=== PATIENT | male | born 1960 | race Caucasian/White ===

== ENCOUNTER 2016-10-26 15:05 | Emergency (ER) | payer BC, OTHER ==
[~2016-10-26] VITALS: Ht 182.9 cm; Wt 124.7 kg
[2016-10-26 17:45] LABS: BASO % 0.4 % (0.0-1.0); EOS # 0.1 K/mm3 (0.0-0.50); EOS % 0.7 % (0.0-3.0); LARGE UNSTAINED CELL # 0.1 K/mm3 (0.0-0.4); LARGE UNSTAINED CELL % 1.1 % (0.0-4.0); LYMPH # 1.4 K/mm3 (1.5-4.5); LYMPH % 13.2 % (24.0-44.0); MEAN CORPUSCULAR HEMOGLOBIN 29.4 pg (27.0-33.0); MEAN CORPUSCULAR HGB CONC 33.5 g/dl (32.0-36.5); MEAN CORPUSCULAR VOLUME 87.8 fl (80.0-96.0); MONO # 0.4 K/mm3 (0.0-0.8); MONO % 4.2 % (0.0-5.0); NEUTROPHILS # 7.7 K/mm3 (1.8-7.7); NEUTROPHILS % 80.4 % (36.0-66.0); PLATELET COUNT, AUTOMATED 308 k/mm3 (150-450); WHITE BLOOD COUNT 9.6 K/mm3 (4.0-10.0)
[2016-10-26 18:00] LABS: CALCIUM LEVEL 8.6 MG/DL (8.5-10.1); CREATININE FOR GFR 2.03 MG/DL (0.70-1.30); GLOMERULAR FILTRATION RATE 36.3 (>56); POTASSIUM SERUM 4.3 MEQ/L (3.5-5.1)
--- NOTE | 2016-10-26 18:05 | REP ---
Left knee series: Five views: History: Left knee pain. Findings: There is prepatellar soft-tissue swelling. Patellofemoral spur formation is noted consistent with osteoarthritis. There is also nonarticular spurring at the superior and inferior pole of the patella at the quadriceps tendon and patellar tendon insertion sites. Vascular calcification is noted behind the knee. No fracture is seen. Impression: No fracture noted. Patellofemoral spurring and tendon insertion site spurring on the patella. Prepatellar swelling. Signed by Dudley Rivera MD 10/26/2016 06:30 P
[2016-10-26 18:07] LABS: ERYTHROCYTE SEDIMENTATION RATE 64 mm/hr (0-20)
[2016-10-26] MEDS ORDERED: GLIM2TAB PO (18:30)
[2016-10-26] MEDS ORDERED: LEVO-91 PO (18:30)
[2016-10-26] MEDS ORDERED: edarbyclor PO (18:30)
[2016-10-26] MEDS ORDERED: [UNRECOGNIZED DRUG - CODE] PO (18:30)
[2016-10-26] MEDS ORDERED: BYST5TAB2 PO (18:30)
[2016-10-26] MEDS ORDERED: TORS20TA2 PO (18:30)
[2016-10-26 19:00] VITALS: BP 192/89
== END 2016-10-26 19:04 | disposition home or self-care (01) ==
LOC: M ED 16:55
DX: M70.42 Prepatellar bursitis, left knee (principal)

== ENCOUNTER → 2016-12-18 | Outpatient (CLI) | payer BC, OTHER ==
[~2016-12-18] MED LIST: BYST5TAB2 PO; GLIM2TAB PO; LEVO-91 PO; TORS20TA2 PO; [UNRECOGNIZED DRUG - CODE] PO; edarbyclor PO
--- NOTE | 2016-12-18 08:09 | REP ---
Clinical: Chronic stage III medical renal disease. Comparison: 11/14/2012. Technique: Real time escalona scale ultrasound examination using curved array transducer. Findings: The bilateral kidneys are normal in contour, size, echogenicity and reniform shape without hydronephrosis, nephrolithiasis or renal mass lesion. Right kidney measures 14.4 x 6.9 x 7.3 cm and includes 1.9 cm simple lower pole renal cyst. Left kidney measures 14.6 x 6.7 x 6.2 cm without cyst. The bladder is grossly unremarkable but incompletely distended. Impression: 1.9 cm right lower pole simple renal cysts. Otherwise relatively normal ultrasound evaluation of the kidneys. Signed by Jay Jay Maria MD 12/18/2016 08:00 A
== END ==
LOC: M RAD 06:44
PROVIDERS: ATTEND Internal Medicine Nephrology
DX: N18.3 Chronic kidney disease, stage 3 (moderate) (principal)

== ENCOUNTER → 2019-05-12 | Outpatient (REF) | payer OTHER ==
[~2019-05-12] MED LIST changes: -GLIM2TAB PO; +GLIM2TAB2 PO
[2019-05-12 17:36] LABS: FREE T4 0.92 NG/DL (0.76-1.46); THYROID STIMULATING HORMONE 7.38 uIU/ML (0.358-3.740)
== END ==
LOC: M LAB REF 16:57
PROVIDERS: ATTEND Internal Medicine Nephrology
DX: E03.9 Hypothyroidism, unspecified (principal)

== ENCOUNTER → 2019-10-09 | Outpatient (REF) | payer OTHER ==
[~2019-10-09] MED LIST changes: -GLIM2TAB2 PO; +GLIM2TAB4 PO
[2019-10-09 18:09] LABS: FREE T4 1.66 NG/DL (0.76-1.46); THYROID STIMULATING HORMONE 2.59 uIU/ML (0.358-3.740)
== END ==
LOC: M LAB REF 16:50
PROVIDERS: ATTEND Internal Medicine Nephrology
DX: E03.9 Hypothyroidism, unspecified (principal)

== ENCOUNTER → 2020-04-22 | Outpatient (REF) | payer OTHER ==
[2020-04-22 18:16] LABS: FREE T4 1.03 NG/DL (0.76-1.46); THYROID STIMULATING HORMONE 4.91 uIU/ML (0.358-3.740)
== END ==
LOC: M LAB REF 17:06
PROVIDERS: ATTEND Nurse Practitioner Family
DX: E03.9 Hypothyroidism, unspecified (principal)

== ENCOUNTER → 2020-07-29 | Outpatient (CLI) | payer SELFPAY | LOC: M LABSMTC 11:30 | PROVIDERS: ATTEND Pediatrics | DX: Z20.822 Contact with and (suspected) exposure to COVID-19 (principal) ==

== ENCOUNTER → 2020-08-28 | Outpatient (REF) | payer BC, OTHER | LOC: M LAB 22:25 | PROVIDERS: ATTEND Physician Assistant Medical | DX: Z20.822 Contact with and (suspected) exposure to COVID-19 (principal) ==

== ENCOUNTER → 2021-02-20 | Outpatient (REF) | payer BC | LOC: M LAB REF 17:01 | PROVIDERS: ATTEND Nurse Practitioner Family | DX: E83.42 Hypomagnesemia (principal) ==

== ENCOUNTER → 2021-04-24 | Outpatient (REF) | payer BC | LOC: M LAB REF 17:36 | PROVIDERS: ATTEND Nurse Practitioner Family | DX: E83.42 Hypomagnesemia (principal) ==

== ENCOUNTER → 2021-06-03 | Outpatient (CLI) | payer BC, OTHER ==
--- NOTE | 2021-06-03 10:00 | REP ---
INDICATION: CKD IV HTN COMPARISON: 12/18/2016 TECHNIQUE: Real time escalona scale ultrasound examination using curved array transducer followed by color Doppler evaluation of the renal vasculature. FINDINGS: The kidneys are essentially normal in contour, size, echogenicity, and reniform shape. Increased central sinus fat is consistent with the given history of age-related chronic renal disease. Incidental 2.1 cm lower pole simple right renal cyst noted. Bladder is unremarkable. Right kidney measures 13.6 x 5.9 x 6.8 cm. Left kidney measures 13.6 x 6.0 x 6.2 cm. Color Doppler evaluation. Peak aortic velocity: 166 centimeters/second RIGHT KIDNEY Renal arterial velocity: 115 centimeters/second Renal-aortic ratio: 0.69 Intrarenal resistive indices: 0.76-0.83 Intrarenal acceleration times: 0.038-0.042 LEFT KIDNEY Renal arterial velocity: 79.1 centimeters/second Renal-aortic ratio: 0.47 Intrarenal resistive indices: 0.82-0.86 Intrarenal acceleration times: 0.042-0.068 IMPRESSION: 1. Kidneys are relatively normal. Incidental simple right renal cyst noted. 2. Doppler evaluation demonstrates changes related to known chronic medical renal disease. No sonographic evidence for renal arterial stenosis appreciated. <Electronically signed by Jay Jay Maria > 06/03/21 [id number]
== END ==
LOC: M RAD 08:02
PROVIDERS: ATTEND Nurse Practitioner Family
DX: N18.4 Chronic kidney disease, stage 4 (severe) (principal); I15.0 Renovascular hypertension; N28.1 Cyst of kidney, acquired

== ENCOUNTER → 2021-10-21 | Outpatient (REF) | payer BC, OTHER ==
[2021-10-21 17:34] LABS: BASO # 0.1 10^3/uL (0.0-0.2); BASO % 0.8 % (0.0-1.0); EOS # 0.1 10^3/uL (0.0-0.5); EOS % 1.6 % (0.0-3.0); HEMATOCRIT 33.6 % (42.0-52.0); HEMOGLOBIN 11.4 g/dl (13.5-17.5); LYMPH # 1.1 10^3/uL (1.5-5.0); LYMPH % 17.6 % (24.0-44.0); MEAN CORPUSCULAR HEMOGLOBIN 30.2 pg (27.0-33.0); MEAN CORPUSCULAR HGB CONC 33.9 g/dl (32.0-36.5); MEAN CORPUSCULAR VOLUME 89.1 fl (80.0-96.0); MONO # 0.4 10^3/uL (0.0-0.8); MONO % 5.5 % (2.0-8.0); NEUTROPHILS # 4.7 10^3/uL (1.5-8.5); NEUTROPHILS % 74.2 % (36.0-66.0); PLATELET COUNT, AUTOMATED 288 10^3/uL (150-450); RED BLOOD COUNT 3.77 10^6/uL (4.30-6.10); WHITE BLOOD COUNT 6.4 10^3/uL (4.0-10.0)
[2021-10-21 18:31] LABS: ALBUMIN 3.7 GM/DL (3.2-5.2); BILIRUBIN,TOTAL 0.9 MG/DL (0.2-1.0); CALCIUM LEVEL 10.6 MG/DL (8.8-10.2); CREATININE FOR GFR 2.73 MG/DL (0.70-1.30); GLOMERULAR FILTRATION RATE 25.5 (>49); PHOSPHORUS LEVEL 4.7 MG/DL (2.5-4.9); POTASSIUM SERUM 4.3 MEQ/L (3.5-5.1); TOTAL PROTEIN 7.1 GM/DL (6.4-8.2); URIC ACID 2.3 MG/DL (3.5-7.2)
== END ==
LOC: M LAB REF 16:40
DX: D50.0 Iron deficiency anemia secondary to blood loss (chronic) (principal); I10 Essential (primary) hypertension; E11.9 Type 2 diabetes mellitus without complications

== ENCOUNTER → 2023-12-27 | Outpatient (CLI) | payer OTHER, BC ==
[~2023-12-27] MED LIST changes: +BYST1TAB2 PO; -BYST5TAB2 PO
== END ==
LOC: M SOG 12:12
PROVIDERS: ATTEND Physician Assistant
DX: M25.562 Pain in left knee (principal)

== ENCOUNTER → 2024-01-12 | Outpatient (CLI) | payer BC, OTHER | LOC: M SOG 07:55 | PROVIDERS: ATTEND Physician Assistant | DX: S82.002A Unspecified fracture of left patella, initial encounter for closed fracture (principal); Y93.9 Activity, unspecified; Y92.9 Unspecified place or not applicable ==

== ENCOUNTER → 2024-02-03 | Outpatient (CLI) | payer BC | LOC: M SOG 08:00 | PROVIDERS: ATTEND Physician Assistant | DX: M25.562 Pain in left knee (principal); S82.092A Other fracture of left patella, initial encounter for closed fracture; X58.XXXA Exposure to other specified factors, initial encounter; Y92.9 Unspecified place or not applicable; Y93.9 Activity, unspecified; Y99.9 Unspecified external cause status ==

== ENCOUNTER → 2024-03-20 | Outpatient (CLI) | payer BC | LOC: M SOG 07:56 | PROVIDERS: ATTEND Physician Assistant | DX: S82.002G Unspecified fracture of left patella, subsequent encounter for closed fracture with delayed healing (principal); M79.89 Other specified soft tissue disorders ==

== ENCOUNTER → 2024-06-03 | Outpatient (CLI) | payer BC ==
[2024-06-03 10:11] LABS: BASO # 0.1 10^3/uL (0.0-0.2); BASO % 0.9 % (0.0-1.0); EOS # 0.1 10^3/uL (0.0-0.5); EOS % 1.3 % (0.0-3.0); HEMATOCRIT 38.1 % (42.0-52.0); HEMOGLOBIN 13.1 g/dl (13.5-17.5); LYMPH # 1.1 10^3/uL (1.5-5.0); LYMPH % 16.2 % (24.0-44.0); MEAN CORPUSCULAR HEMOGLOBIN 32.2 pg (27.0-33.0); MEAN CORPUSCULAR HGB CONC 34.4 g/dl (32.0-36.5); MEAN CORPUSCULAR VOLUME 93.6 fl (80.0-96.0); MONO # 0.5 10^3/uL (0.0-0.8); MONO % 6.8 % (2.0-8.0); NEUTROPHILS % 74.5 % (36.0-66.0); PLATELET COUNT, AUTOMATED 242 10^3/uL (150-450); RED BLOOD COUNT 4.07 10^6/uL (4.30-6.10); WHITE BLOOD COUNT 6.7 10^3/uL (4.0-10.0)
[2024-06-03 10:25] LABS: URIC ACID 7.1 MG/DL (3.7-9.2)
[2024-06-03 10:28] LABS: ALBUMIN 3.6 G/DL (3.2-5.2); CALCIUM LEVEL 9.6 MG/DL (8.3-10.6); CREATININE FOR GFR 1.82 MG/DL (0.70-1.30); GLOMERULAR FILTRATION RATE 40.3 (>49); PHOSPHORUS LEVEL 3.3 MG/DL (2.4-5.1); POTASSIUM SERUM 4.9 MMOL/L (3.5-5.1)
[2024-06-03 10:33] LABS: PTH INTACT 151.3 PG/ML (18.5-88.0)
== END ==
LOC: M LAB 08:21
PROVIDERS: ATTEND Nurse Practitioner Family
DX: N18.32 Chronic kidney disease, stage 3b (principal); D63.1 Anemia in chronic kidney disease; N25.81 Secondary hyperparathyroidism of renal origin

== ENCOUNTER → 2024-11-20 | Outpatient (CLI) | payer BC | LOC: M PLAIMG 06:38 | PROVIDERS: ATTEND Psychiatry & Neurology Neurology | DX: I63.9 Cerebral infarction, unspecified (principal) ==

== ENCOUNTER 2025-05-01 14:57 | Emergency (ER) | payer BC ==
[~2025-05-01] VITALS: Ht 182.9 cm; Wt 108.8 kg
[2025-05-01 15:05] VITALS: TEMP 97.9
[2025-05-01] MEDS ORDERED: FERR325T3 PO (16:19)
[2025-05-01] MEDS ORDERED: CLONI1TA PO (16:19)
[2025-05-01] MEDS ORDERED: LEVO88TA3 PO (16:19)
[2025-05-01] MEDS ORDERED: SENN-186 PO (16:19)
[2025-05-01] MEDS ORDERED: CALC0.5C6 PO (16:19)
[2025-05-01] MEDS ORDERED: CLON0.2D6 TD (16:19)
[2025-05-01] MEDS ORDERED: AMLO1TAB24 PO (16:19)
[2025-05-01] MEDS ORDERED: METH-1164 PO (16:19)
[2025-05-01] MEDS ORDERED: GLIM1TAB84 PO (16:19)
[2025-05-01] MEDS ORDERED: ACET-683 PO (16:19)
[2025-05-01] MEDS ORDERED: BUME1TAB3 PO (16:19)
[2025-05-01] MEDS ORDERED: ASPI81TA26 PO (16:19)
[2025-05-01] MEDS ORDERED: TRUL0.5I SC (16:19)
[2025-05-01] MEDS ORDERED: BYST1TAB3 PO (16:19)
[2025-05-01] MEDS ORDERED: ALLO100T PO (16:19)
[2025-05-01 16:21] LABS: BASO # 0.1 10^3/uL (0.0-0.2); BASO % 0.9 % (0.0-1.0); EOS # 0.1 10^3/uL (0.0-0.5); EOS % 1.4 % (0.0-3.0); LYMPH # 1.2 10^3/uL (1.5-5.0); LYMPH % 21.4 % (24.0-44.0); MONO # 0.4 10^3/uL (0.0-0.8); MONO % 6.3 % (2.0-8.0); NEUTROPHILS # 4.0 10^3/uL (1.5-8.5); NEUTROPHILS % 69.8 % (36.0-66.0); PLATELET COUNT, AUTOMATED 228 10^3/uL (150-450)
[2025-05-01 16:40] LABS: CK-MB VALUE MASS 3.7 NG/ML (<3.6)
[2025-05-01 16:43] LABS: CALCIUM LEVEL 10.2 MG/DL (8.3-10.6); CARBON DIOXIDE LEVEL 26.0 MMOL/L (20-31); CHLORIDE LEVEL 105.0 MMOL/L (98-107); CREATININE FOR GFR 2.31 MG/DL (0.70-1.30); GLOMERULAR FILTRATION RATE 30.8 (>49); MAGNESIUM LEVEL 2.1 MG/DL (1.8-2.4); POTASSIUM SERUM 4.0 MMOL/L (3.5-5.1); SODIUM LEVEL 142.0 MMOL/L (136-145)
[2025-05-01 16:48] LABS: CPK CREATINE PHOSPHOKINASE 83.0 U/L (46-171); MB/CK RELATIVE INDEX 4.45 (< OR =4)
[2025-05-01] MEDS ORDERED: HYDR50TA46 PO (18:51)
[2025-05-01 18:56] VITALS: BP 183/85
[2025-05-01] MEDS: hydrALAZINE 20 MG/ML 1 ML VIAL IV ONE (18:56)
[2025-05-01 20:07] VITALS: BP 167/73; O2SAT 96
== END 2025-05-01 20:08 | disposition home or self-care (01) ==
LOC: M ED 14:57
DX: I12.9 Hypertensive chronic kidney disease with stage 1 through stage 4 chronic kidney disease, or unspecified chronic kidney disease (principal); R00.1 Bradycardia, unspecified; R79.89 Other specified abnormal findings of blood chemistry; I25.10 Atherosclerotic heart disease of native coronary artery without angina pectoris; I25.2 Old myocardial infarction; E11.9 Type 2 diabetes mellitus without complications; E78.5 Hyperlipidemia, unspecified; Z86.73 Personal history of transient ischemic attack (TIA), and cerebral infarction without residual deficits; Z95.1 Presence of aortocoronary bypass graft; Z79.899 Other long term (current) drug therapy; Z79.82 Long term (current) use of aspirin; Z79.4 Long term (current) use of insulin
CPT/HCPCS: 36415; 80048; 82550; 82553; 83735; 84484; 85025; 93005; 96374; 99284; J0360

== ENCOUNTER → 2025-06-13 | Outpatient (REF) | payer BC ==
[~2025-06-13] MED LIST changes: +ACET-683 PO; +ALLO100T PO; +AMLO1TAB24 PO; +AMLO1TAB25 PO; +ASPI81TA26 PO; +BUME1TAB3 PO; +BYST1TAB3 PO; +CALC0.5C6 PO; +CLON0.2D6 TD; +CLONI1TA PO; +DULC10SU2 PR; +FERR325T3 PO; +GLIM1TAB84 PO; +HYDR50TA46 PO; +HYDR50TA47 PO; +LEVO88TA3 PO; +METH-1164 PO; +ROSU10TA90 PO; +SENN-186 PO; +SENO8.6T10 PO; +SODI325T9 PO; +TAMS1CAP17 PO; +TRUL0.5I SC
[2025-06-13 18:37] LABS: IRON (FE) 33.0 UG/DL (65-175); PERCENT SATURATION 14.2 % (19.7-50.0)
== END ==
LOC: M LAB REF 18:17
PROVIDERS: ATTEND Nurse Practitioner Family
DX: D50.9 Iron deficiency anemia, unspecified (principal)

== ENCOUNTER 2025-06-14 13:03 | Inpatient (IN) | payer BC ==
[~2025-06-14] VITALS: Ht 182.9 cm; Wt 115.2 kg
[~2025-06-14 13:03] MED LIST changes: -AMLO1TAB25 PO; -DULC10SU2 PR; -HYDR50TA47 PO; -ROSU10TA90 PO; -SENO8.6T10 PO; -SODI325T9 PO; -TAMS1CAP17 PO
[2025-06-14 14:04] LABS: VENOUS BASE EXCESS -6.8 (-2.0-2.0); VENOUS HCO3 17.8 MMOL/L (23.0-27.0); VENOUS O2 SATURATION 97.7 % (60.0-80.0); VENOUS PARTIAL PRESSURE CO2 32.4 mmHg (38.0-50.0); VENOUS PARTIAL PRESSURE O2 129.8 mmHg (30.0-50.0); VENOUS PH 7.357 UNITS (7.330-7.430); VENOUS STANDARD HCO3 19.0 MMOL/L; VENOUS TOTAL CO2 18.8 MMOL/L (24.0-28.0)
[2025-06-14 14:09] LABS: BASO # 0.1 10^3/uL (0.0-0.2); BASO % 0.9 % (0.0-1.0); EOS # 0.1 10^3/uL (0.0-0.5); EOS % 1.9 % (0.0-3.0); LYMPH # 1.0 10^3/uL (1.5-5.0); LYMPH % 17.7 % (24.0-44.0); MONO # 0.4 10^3/uL (0.0-0.8); MONO % 7.0 % (2.0-8.0); NEUTROPHILS # 4.3 10^3/uL (1.5-8.5); NEUTROPHILS % 72.2 % (36.0-66.0); PLATELET COUNT, AUTOMATED 276 10^3/uL (150-450)
[2025-06-14 14:56] LABS: ALT/SGPT 23.0 U/L (7.0-40); AST/SGOT 24.0 U/L (<34); CALCIUM LEVEL 9.6 MG/DL (8.3-10.6); CARBON DIOXIDE LEVEL 19.0 MMOL/L (20-31); CHLORIDE LEVEL 107.0 MMOL/L (98-107); CREATININE FOR GFR 3.48 MG/DL (0.70-1.30); GLOMERULAR FILTRATION RATE 18.8 (>49); POTASSIUM SERUM 4.5 MMOL/L (3.5-5.1); SODIUM LEVEL 140.0 MMOL/L (136-145)
[2025-06-14 16:03] LABS: KETONE, URINE AUTO RFX NEGATIVE (NEGATIVE); LEUKOCYTE ESTERASE UR AUTO RFX NEGATIVE (NEGATIVE); NITRITE, URINE AUTO RFX NEGATIVE (NEGATIVE); RBC, URINE AUTO RFX 1 /HPF (0-3); SQUAM EPITHELIAL CELL UR AURFX 0 /HPF (0-6); WBC, URINE AUTO RFX 0 /HPF (0-3)
[2025-06-14] MEDS: LIDOCAINE 2% 5 ML JELLY UROJET TOP ONE (16:05)
[2025-06-14] MEDS: NS (Normal Saline) 0.9% 1,000 ML IV SCH (17:00)
[2025-06-14] MEDS ORDERED: HYDR50TA47 PO (17:14)
[2025-06-14] MEDS ORDERED: AMLO1TAB25 PO (17:14)
[2025-06-14] MEDS ORDERED: ROSU10TA90 PO (17:15)
[2025-06-14] MEDS ORDERED: SODI325T9 PO (17:16)
[2025-06-14] MEDS ORDERED: HOME MED LIST COMPLETE! XX SCH (17:20)
[2025-06-14] MEDS ORDERED: MAALOX 30 ML SUSP *UDC PO PRN (18:50)
[2025-06-14] MEDS ORDERED: GLUCAGON INJ 1 MG VIAL SC PRN (18:55)
[2025-06-14] MEDS ORDERED: DEXTROSE 50% 50 ML SYRINGE IV PRN (18:55)
[2025-06-14] MEDS ORDERED: GLUCOSE 4 GM CHEW PO PRN (18:55)
[2025-06-14] MEDS: INSULIN LISPRO (NovoLOG) PER UNIT SC SCH (21:00)
[2025-06-14] MEDS: SODIUM BICARBONATE 325 MG TAB PO SCH (22:30)
[2025-06-14] MEDS: NEBIVOLOL 5 MG TAB PO SCH (22:31)
[2025-06-14] MEDS: **hydrALAZINE** 50 MG TAB PO SCH (22:31)
[2025-06-14] MEDS: FERROUS SULFATE 325 MG TAB PO SCH (22:40)
[2025-06-14] MEDS: HEPARIN SOD 5000 UNITS/ML 1 ML VIAL/SYRINGE SC SCH (22:41)
[2025-06-14] MEDS: FERRIC CARBOXYMALTOSE INJ 750 MG, VIAL MATE ADAPTER 1 EACH in NS 100 ML IV ONE (22:42)
[2025-06-15] MEDS: LEVOTHYROXINE 88 MCG TABLET (0.088 MG) PO SCH (06:24)
[2025-06-15] MEDS: INSULIN LISPRO (NovoLOG) PER UNIT SC SCH (08:28)
[2025-06-15 08:30] LABS: CALCIUM LEVEL 9.4 MG/DL (8.3-10.6); CARBON DIOXIDE LEVEL 20.0 MMOL/L (20-31); CHLORIDE LEVEL 111.0 MMOL/L (98-107); CREATININE FOR GFR 3.25 MG/DL (0.70-1.30); GLOMERULAR FILTRATION RATE 20.4 (>49); MAGNESIUM LEVEL 2.3 MG/DL (1.8-2.4); PHOSPHORUS LEVEL 5.1 MG/DL (2.4-5.1); POTASSIUM SERUM 4.0 MMOL/L (3.5-5.1); SODIUM LEVEL 142.0 MMOL/L (136-145)
[2025-06-15 08:31] LABS: THYROXINE (T4) 4.6 UG/DL (4.5-10.9)
[2025-06-15 08:32] LABS: FREE T4 1.43 NG/DL (0.89-1.76); TOTAL 25(OH) VITAMIN D 24.3 NG/ML (20.0-100.0); VITAMIN B12 LEVEL 523.0 PG/ML (211-911)
[2025-06-15] MEDS: CALCITRIOL 0.25 MCG CAP (S0169) PO SCH (08:39)
[2025-06-15] MEDS: ASPIRIN 81 MG ENTERIC TABLET PO SCH (08:39)
[2025-06-15] MEDS: ROSUVASTATIN 10 MG TAB PO SCH (08:39)
[2025-06-15] MEDS: TAMSULOSIN 0.4 MG CAP PO SCH (09:45)
[2025-06-15] MEDS: amLODIPine 10 MG TAB PO SCH (12:06)
[2025-06-15 15:40] VITALS: BP 143/70; TEMP 98.8; O2SAT 94
[2025-06-15 20:25] VITALS: BP 118/57; TEMP 99; O2SAT 94
[2025-06-16] MEDS: ACETAMINOPHEN 325 MG TAB PO PRN (00:03)
[2025-06-16 05:30] VITALS: BP 136/63; TEMP 99.5; O2SAT 93
[2025-06-16 07:46] LABS: CALCIUM LEVEL 10.1 MG/DL (8.3-10.6); CARBON DIOXIDE LEVEL 20.0 MMOL/L (20-31); CHLORIDE LEVEL 110.0 MMOL/L (98-107); CREATININE FOR GFR 3.14 MG/DL (0.70-1.30); GLOMERULAR FILTRATION RATE 21.3 (>49); MAGNESIUM LEVEL 2.4 MG/DL (1.8-2.4); POTASSIUM SERUM 4.1 MMOL/L (3.5-5.1); SODIUM LEVEL 143.0 MMOL/L (136-145)
[2025-06-16 09:06] VITALS: BP 163/70
[2025-06-16 12:00] VITALS: BP 154/66; TEMP 97.5; O2SAT 95
[2025-06-16] MEDS ORDERED: DULC10SU2 PR (12:17)
[2025-06-16] MEDS ORDERED: TAMS1CAP17 PO (12:17)
[2025-06-16] MEDS ORDERED: SODI325T9 PO (12:17)
[2025-06-16] MEDS ORDERED: SENO8.6T10 PO (12:17)
[2025-06-16 12:26] VITALS: BP 154/66
[2025-06-19] MEDS ORDERED: cloNIDine HCL 0.2 MG/24 HR PATCH TD SCH (09:00)
== END 2025-06-16 15:44 | disposition home or self-care (01) | DRG 501 ==
LOC: M ED 13:03 → M ED INP 18:49 → M MSPAV 06-15 15:42
PROVIDERS: ADMIT Student in an Organized Health Care Education/Training Program; ATTEND Student in an Organized Health Care Education/Training Program
DX: N40.1 Benign prostatic hyperplasia with lower urinary tract symptoms (principal); E87.20 Acidosis, unspecified; E11.22 Type 2 diabetes mellitus with diabetic chronic kidney disease; N18.32 Chronic kidney disease, stage 3b; R33.9 Retention of urine, unspecified; I12.9 Hypertensive chronic kidney disease with stage 1 through stage 4 chronic kidney disease, or unspecified chronic kidney disease; G47.33 Obstructive sleep apnea (adult) (pediatric); E03.9 Hypothyroidism, unspecified; R53.1 Weakness; I25.10 Atherosclerotic heart disease of native coronary artery without angina pectoris; N32.81 Overactive bladder; D50.9 Iron deficiency anemia, unspecified; K59.09 Other constipation; Z95.1 Presence of aortocoronary bypass graft; Z79.890 Hormone replacement therapy; Z79.899 Other long term (current) drug therapy; Z91.041 Radiographic dye allergy status; Z86.73 Personal history of transient ischemic attack (TIA), and cerebral infarction without residual deficits

== ENCOUNTER → 2025-06-28 | Outpatient (REF) | payer BC ==
[~2025-06-28] MED LIST changes: +AMLO1TAB25 PO; +BISA10SU27 PR; +DULC10SU2 PR; +HYDR50TA47 PO; +MIRA3350 PO; +ROSU10TA90 PO; +SENN-122 PO; +SENO8.6T10 PO; +SODI325T9 PO; +TAMS1CAP17 PO; +VITA1TAB82 PO
== END ==
LOC: M LAB REF 17:17
PROVIDERS: ATTEND Urology
DX: R33.9 Retention of urine, unspecified (principal); N40.1 Benign prostatic hyperplasia with lower urinary tract symptoms; Z12.5 Encounter for screening for malignant neoplasm of prostate

== ENCOUNTER 2025-07-01 22:21 | Inpatient (IN) | payer BC ==
[~2025-07-01] VITALS: Ht 182.9 cm; Wt 113.9 kg
[~2025-07-01 22:21] MED LIST changes: -BISA10SU27 PR; -MIRA3350 PO; -SENN-122 PO; -VITA1TAB82 PO
[2025-07-01 23:25] LABS: BASO # 0.0 10^3/uL (0.0-0.2); BASO % 0.3 % (0.0-1.0); EOS # 0.0 10^3/uL (0.0-0.5); EOS % 0.1 % (0.0-3.0); LYMPH # 0.4 10^3/uL (1.5-5.0); LYMPH % 2.8 % (24.0-44.0); MONO # 0.9 10^3/uL (0.0-0.8); MONO % 5.6 % (2.0-8.0); NEUTROPHILS # 13.8 10^3/uL (1.5-8.5); NEUTROPHILS % 90.5 % (36.0-66.0); PLATELET COUNT, AUTOMATED 237 10^3/uL (150-450)
[2025-07-01 23:30] LABS: APPEARANCE, URINE CLOUDY (CLEAR); BACTERIA, URINE AUTO 2+ (NEGATIVE); BILIRUBIN, URINE AUTO NEGATIVE (NEGATIVE); BLOOD, URINE BLOOD 2+ (NEGATIVE); GLUCOSE, URINE (UA) AUTO NEGATIVE (NEGATIVE); KETONE, URINE AUTO NEGATIVE (NEGATIVE); LEUKOCYTE ESTERASE, URINE AUTO 2+ (NEGATIVE); MUCUS, URINE SMALL (NEGATIVE); NITRITE, URINE AUTO NEGATIVE (NEGATIVE); PROTEIN, URINE AUTO 2+ mg/dL (NEGATIVE); RBC, URINE AUTO 80 /HPF (0-3); SPECIFIC GRAVITY URINE AUTO 1.014 (1.002-1.035); SQUAMOUS EPITHELIAL CELL UR AU 0 /HPF (0-6); UROBILINOGEN, URINE AUTO 2.0 mg/dL (0.0-2.0); WBC, URINE AUTO 70 /HPF (0-3)
[2025-07-01 23:39] LABS: CALCIUM LEVEL 10.3 MG/DL (8.3-10.6); CARBON DIOXIDE LEVEL 20.0 MMOL/L (20-31); CHLORIDE LEVEL 101.0 MMOL/L (98-107); CREATININE FOR GFR 3.48 MG/DL (0.70-1.30); GLOMERULAR FILTRATION RATE 18.8 (>49); POTASSIUM SERUM 4.0 MMOL/L (3.5-5.1); SODIUM LEVEL 134.0 MMOL/L (136-145)
[2025-07-02] MEDS: FUROSEMIDE 20 MG/2 ML VIAL IV ONE (03:48)
[2025-07-02] MEDS: cefTRIAXone SOD 1 GM in DEXTROSE 5% (D5W) ADV/MINI-BAG 50 ML IV ONE (03:49)
[2025-07-02 03:50] LABS: CPK CREATINE PHOSPHOKINASE 122.0 U/L (46-171)
[2025-07-02 03:51] LABS: CK-MB VALUE MASS 5.9 NG/ML (<3.6); MB/CK RELATIVE INDEX 4.83 (< OR =4)
[2025-07-02] MEDS ORDERED: FUROSEMIDE 40 MG/4 ML VIAL IV SCH (04:00)
[2025-07-02 05:05] LABS: CPK CREATINE PHOSPHOKINASE 110.0 U/L (46-171)
[2025-07-02 05:06] LABS: CK-MB VALUE MASS 5.4 NG/ML (<3.6); MB/CK RELATIVE INDEX 4.9 (< OR =4)
[2025-07-02] MEDS ORDERED: GLUCAGON INJ 1 MG VIAL SC PRN (06:55)
[2025-07-02] MEDS ORDERED: GLUCOSE 4 GM CHEW PO PRN (06:55)
[2025-07-02] MEDS ORDERED: DEXTROSE 50% 50 ML SYRINGE IV PRN (06:55)
[2025-07-02] MEDS ORDERED: cefTRIAXone SOD 1 GM in DEXTROSE 5% (D5W) ADV/MINI-BAG 50 ML IV SCH (08:00)
[2025-07-02 08:25] LABS: PLATELET COUNT, AUTOMATED 231 10^3/uL (150-450)
[2025-07-02] MEDS ORDERED: TAMS1CAP17 PO (08:48)
[2025-07-02] MEDS ORDERED: VITA1TAB82 PO (08:48)
[2025-07-02] MEDS ORDERED: BISA10SU27 PR (08:48)
[2025-07-02] MEDS ORDERED: SENN-122 PO (08:48)
[2025-07-02] MEDS ORDERED: MIRA3350 PO (08:48)
[2025-07-02 08:49] LABS: ALT/SGPT 25.0 U/L (7.0-40); AST/SGOT 32.0 U/L (<34); CALCIUM LEVEL 10.0 MG/DL (8.3-10.6); CARBON DIOXIDE LEVEL 21.0 MMOL/L (20-31); CHLORIDE LEVEL 99.0 MMOL/L (98-107); CREATININE FOR GFR 3.41 MG/DL (0.70-1.30); GLOMERULAR FILTRATION RATE 19.3 (>49); MAGNESIUM LEVEL 2.4 MG/DL (1.8-2.4); PHOSPHORUS LEVEL 3.2 MG/DL (2.4-5.1); POTASSIUM SERUM 3.8 MMOL/L (3.5-5.1); SODIUM LEVEL 134.0 MMOL/L (136-145)
[2025-07-02] MEDS ORDERED: HOME MED LIST COMPLETE! XX SCH (08:50)
[2025-07-02] MEDS: INSULIN LISPRO (NovoLOG) PER UNIT SC SCH ×2 (09:00→20:42)
[2025-07-02 11:56] LABS: IRON (FE) 9 UG/DL (65-175); PERCENT SATURATION 4.5 % (19.7-50.0)
[2025-07-02] MEDS: SODIUM BICARBONATE 325 MG TAB PO SCH (12:02)
[2025-07-02] MEDS: ROSUVASTATIN 10 MG TAB PO SCH (12:02)
[2025-07-02] MEDS: ASPIRIN 81 MG CHEWABLE TABLET PO SCH (12:02)
[2025-07-02 12:29] LABS: VITAMIN B12 LEVEL 429 PG/ML (211-911)
[2025-07-02] MEDS: ACETAMINOPHEN 325 MG TAB PO PRN (14:12)
[2025-07-02] MEDS: FUROSEMIDE 40 MG/4 ML VIAL IV SCH (15:48)
[2025-07-02 16:01] LABS: PLATELET COUNT, AUTOMATED 215 10^3/uL (150-450)
[2025-07-02] MEDS: HEPARIN SOD 5000 UNITS/ML 1 ML VIAL/SYRINGE IV ONE (16:09)
[2025-07-02] MEDS: HEPARIN DRIP 25,000 UNITS in IV 1 EA IV SCH (16:10)
[2025-07-02 18:00] VITALS: BP 158/72; TEMP 99; O2SAT 92
[2025-07-02 20:01] VITALS: BP 132/74; TEMP 98.3; O2SAT 92
[2025-07-02] MEDS: NEBIVOLOL 5 MG TAB PO SCH (21:06)
[2025-07-02 22:01] LABS: CHOLESTEROL LEVEL 64 MG/DL (<200); CHOLESTEROL RISK RATIO 2.54 (<5); LDL CHOLESTEROL 20.7 MG/DL (<100); NON-HDL-C 38.9 MG/DL; TRIGLYCERIDES LEVEL 91 MG/DL (<150)
[2025-07-02 23:55] VITALS: BP 141/65; TEMP 100; O2SAT 92
[2025-07-03 01:13] VITALS: BP 156/77
[2025-07-03 03:56] VITALS: BP 126/68; TEMP 97.9; O2SAT 93
[2025-07-03] MEDS: cefTRIAXone SOD 1 GM in DEXTROSE 5% (D5W) ADV/MINI-BAG 50 ML IV SCH (04:04)
[2025-07-03 05:28] LABS: PLATELET COUNT, AUTOMATED 223 10^3/uL (150-450)
[2025-07-03 05:39] LABS: ALT/SGPT 46.0 U/L (7.0-40); AST/SGOT 52.0 U/L (<34); CALCIUM LEVEL 9.4 MG/DL (8.3-10.6); CARBON DIOXIDE LEVEL 21.0 MMOL/L (20-31); CHLORIDE LEVEL 102.0 MMOL/L (98-107); CHOLESTEROL LEVEL 60.0 MG/DL (<200); CHOLESTEROL RISK RATIO 3.24 (<5); CREATININE FOR GFR 3.47 MG/DL (0.70-1.30); GLOMERULAR FILTRATION RATE 18.9 (>49); LDL CHOLESTEROL 22.5 MG/DL (<100); NON-HDL-C 41.5 MG/DL; POTASSIUM SERUM 3.5 MMOL/L (3.5-5.1); SODIUM LEVEL 135.0 MMOL/L (136-145); TRIGLYCERIDES LEVEL 95.0 MG/DL (<150)
[2025-07-03] MEDS: LEVOTHYROXINE 88 MCG TABLET (0.088 MG) PO SCH (05:51)
[2025-07-03 07:42] LABS: MAGNESIUM LEVEL 2.3 MG/DL (1.8-2.4); PHOSPHORUS LEVEL 3.5 MG/DL (2.4-5.1)
[2025-07-03 08:07] VITALS: BP 151/72; TEMP 98.8; O2SAT 93
[2025-07-03] MEDS: TAMSULOSIN 0.4 MG CAP PO SCH (09:55)
[2025-07-03 12:00] VITALS: BP 117/58; TEMP 98.5; O2SAT 94
[2025-07-03] MEDS: PNEUMOC 21-VAL CONJ-DIP CRM/PF 0.5 ML SYRINGE IM.IMMUN ONE (12:25)
[2025-07-03 16:00] VITALS: BP 135/63; TEMP 98.9; O2SAT 93
[2025-07-03] MEDS: cloNIDine HCL 0.2 MG/24 HR PATCH TD SCH (18:38)
[2025-07-03 20:34] VITALS: BP 157/67; TEMP 99; O2SAT 91
[2025-07-03 20:37] LABS: INR 1.47
[2025-07-03] MEDS: MAG SULF 1GM/100ML (MAG RUN) 1 GM in IV 1 EA IV ONE (21:18)
[2025-07-04 00:06] VITALS: BP 139/66; TEMP 99.4; O2SAT 91
[2025-07-04 03:10] VITALS: BP 134/65; TEMP 99; O2SAT 90
[2025-07-04 04:00] VITALS: BP 134/65
[2025-07-04 07:39] VITALS: BP 106/53; TEMP 98; O2SAT 93
[2025-07-04 08:30] LABS: PLATELET COUNT, AUTOMATED 218 10^3/uL (150-450)
[2025-07-04 08:39] LABS: CALCIUM LEVEL 9.1 MG/DL (8.3-10.6); CARBON DIOXIDE LEVEL 22.0 MMOL/L (20-31); CHLORIDE LEVEL 100.0 MMOL/L (98-107); CREATININE FOR GFR 3.74 MG/DL (0.70-1.30); GLOMERULAR FILTRATION RATE 17.3 (>49); MAGNESIUM LEVEL 2.4 MG/DL (1.8-2.4); PHOSPHORUS LEVEL 2.9 MG/DL (2.4-5.1); POTASSIUM SERUM 3.4 MMOL/L (3.5-5.1); SODIUM LEVEL 135.0 MMOL/L (136-145)
[2025-07-04] MEDS: POTASSIUM CHLORIDE 10MEQ SR TABLET PO ONE (11:09)
[2025-07-04] MEDS ORDERED: HEPA1INJ81 IV (11:51)
[2025-07-04] MEDS ORDERED: CEFT1INJ4 IV (11:56)
[2025-07-04 12:08] VITALS: BP 147/69; TEMP 98.6; O2SAT 94
== END 2025-07-04 13:12 | disposition short-term general hospital (02) | DRG 194 ==
LOC: M ED 22:21 → M ED INP 07-02 06:22 → M PCU 07-02 17:14
PROVIDERS: ADMIT Student in an Organized Health Care Education/Training Program; ATTEND Student in an Organized Health Care Education/Training Program
PROC: B246ZZZ Ultrasonography of Right and Left Heart (ICD-10-PCS; principal; 2025-07-03)
DX: I13.0 Hypertensive heart and chronic kidney disease with heart failure and stage 1 through stage 4 chronic kidney disease, or unspecified chronic kidney disease (principal); I21.4 Non-ST elevation (NSTEMI) myocardial infarction; I47.20 Ventricular tachycardia, unspecified; N17.9 Acute kidney failure, unspecified; E87.20 Acidosis, unspecified; N18.4 Chronic kidney disease, stage 4 (severe); E11.22 Type 2 diabetes mellitus with diabetic chronic kidney disease; Z95.1 Presence of aortocoronary bypass graft; E03.9 Hypothyroidism, unspecified; G47.33 Obstructive sleep apnea (adult) (pediatric); N40.1 Benign prostatic hyperplasia with lower urinary tract symptoms; D50.9 Iron deficiency anemia, unspecified; Z88.8 Allergy status to other drugs, medicaments and biological substances; K59.09 Other constipation; E78.00 Pure hypercholesterolemia, unspecified; D63.8 Anemia in other chronic diseases classified elsewhere; I35.0 Nonrheumatic aortic (valve) stenosis; B34.8 Other viral infections of unspecified site; I25.10 Atherosclerotic heart disease of native coronary artery without angina pectoris; N39.0 Urinary tract infection, site not specified; B96.20 Unspecified Escherichia coli [E. coli] as the cause of diseases classified elsewhere; Z79.82 Long term (current) use of aspirin; Z79.84 Long term (current) use of oral hypoglycemic drugs; Z79.890 Hormone replacement therapy; Z79.899 Other long term (current) drug therapy; Z91.041 Radiographic dye allergy status; Z86.73 Personal history of transient ischemic attack (TIA), and cerebral infarction without residual deficits; I50.23 Acute on chronic systolic (congestive) heart failure